=== PATIENT | female | born 1970 | race African-American/Black ===

== ENCOUNTER 2021-02-10 09:06 | Outpatient (CLI) | payer OTHER, MEDICARE | END 2021-02-10 09:07 | disposition home or self-care (01) | LOC: CSHWCC 09:06 | PROVIDERS: ATTEND Nurse Practitioner Family | DX: E11.22 Type 2 diabetes mellitus with diabetic chronic kidney disease (principal); I12.9 Hypertensive chronic kidney disease with stage 1 through stage 4 chronic kidney disease, or unspecified chronic kidney disease; N18.4 Chronic kidney disease, stage 4 (severe); E11.59 Type 2 diabetes mellitus with other circulatory complications; I69.959 Hemiplegia and hemiparesis following unspecified cerebrovascular disease affecting unspecified side; I89.0 Lymphedema, not elsewhere classified; R60.0 Localized edema | CPT/HCPCS: 99203; G0463 ==